=== PATIENT | male | born 1965 | race African-American/Black ===

== ENCOUNTER 2020-07-24 10:01 | Emergency (ER) | payer BC ==
[~2020-07-24] VITALS: Ht 185.4 cm; Wt 83.9 kg
[2020-07-24] MEDS ORDERED: AMLODIPINE-OLM1 EAC3 PO (10:17)
== END 2020-07-24 12:50 | disposition home or self-care (01) ==
LOC: ER 10:01
DX: T74.11XA Adult physical abuse, confirmed, initial encounter (principal); S00.83XA Contusion of other part of head, initial encounter; S00.33XA Contusion of nose, initial encounter; Y04.2XXA Assault by strike against or bumped into by another person, initial encounter; Y07.499 Other family member, perpetrator of maltreatment and neglect; Y93.89 Activity, other specified; Y92.018 Other place in single-family (private) house as the place of occurrence of the external cause; Y99.8 Other external cause status